=== PATIENT | female | born 1990 | race Caucasian/White ===

== ENCOUNTER → 2016-12-22 | Outpatient (CLI) | payer OTHER | END | disposition home or self-care (01) | LOC: C.PAPS 16:37 | PROVIDERS: ATTEND Obstetrics & Gynecology | DX: Z01.419 Encounter for gynecological examination (general) (routine) without abnormal findings (principal) ==

== ENCOUNTER → 2017-06-02 | Outpatient (CLI) | payer OTHER ==
[2017-06-02 17:42] LABS: BLOOD UREA NITROGEN 12 mg/dl (7-18); CREATININE 0.77 mg/dl (0.60-1.20); GLUCOSE 81 mg/dl (70-99)
[2017-06-02 17:43] LABS: ALT/SGPT 17 U/L (12-78); AST/SGOT 9 U/L (15-37); BUN/CREATININE RATIO 15.5 (10-20); CALCIUM 8.9 mg/dl (8.5-10.1); CARBON DIOXIDE 26 mmol/L (21-32); CHLORIDE 106 mmol/L (98-107); POTASSIUM 4.1 mmol/L (3.5-5.1); SODIUM 139 mmol/L (136-145)
[2017-06-02 18:04] LABS: ALB/GLOB RATIO 1.2 (0.9-2); ALKALINE PHOSPHATASE 40 U/L (45-117)
== END | disposition home or self-care (01) ==
LOC: C.LABBFT 11:39
PROVIDERS: ATTEND Physician Assistant Medical
DX: R53.83 Other fatigue (principal); Z83.2 Family history of diseases of the blood and blood-forming organs and certain disorders involving the immune mechanism

== ENCOUNTER 2023-05-22 22:14 | Inpatient (IN) ==
[2023-05-22] MEDS ORDERED: OXYTOCIN 30 UNITS/500 ML BAG IV PRN (22:48)
[2023-05-22] MEDS ORDERED: LIDOCAINE 1% LOCAL 20 ML VIAL INFIL PRN (22:48)
--- NOTE | 2023-05-22 22:54 | History & Physical Report ---
Date of Service May 22, 2023 Assessment & Plan (1) Normal labor: Plan: Jennifer is a 33-year-old G1, P0 at 39 weeks 2 days gestational age presents in labor. 1. Fetus: Category 1 2. Labor: Progressing spontaneously. We will augment as needed 3. GBS negative 4. Vitals within normal limits (2) Supervision of normal first : (3) Factor 5 Leiden mutation, heterozygous: History of Present Illness Primary Care Provider: Radha Madsen PA-C 33-year-old currently at 39+ weeks gestational age presents in labor. Denies leakage of fluid or bleeding. Good movement noted. complicated by factor V heterozygous without history of clot OB Labs: Blood Type A Positive 10/23/22 Antibody Screen NEGATIVE 10/23/22 Hemoglobin 12.1 g/dl (12.0-16.0) 03/17/23 Hematocrit 35.0 % (37.0-47.0) L 03/17/23 Mean Corpuscular Volume 90.5 fL (80.0-100.0) 10/23/22 Platelet Count 224 K/uL (130-400) 10/23/22 Rubella IgG Antibody Immune (Immune) 10/23/22 Rapid Plasma Reagin Nonreactive (Nonreactive) 10/23/22 Hepatitis B Surface Antigen. NON-REACTIVE (NON-REACTIVE) 10/23/22 Hepatitis C Antibody (EIA) NON-REACTIVE (NON-REACTIVE) 10/23/22 HIV (1&2) Ag and Ab Confirmation NON-REACTIVE (NON-REACTIVE) 10/23/22 OB Optional Labs: Chlamydia trachomatis RNA Not Detected (NotDetected) 10/23/22 Neisseria gonorrhoeae RNA Not Detected (NotDetected) 10/23/22 Thyroid Stimulating Hormone (TSH) 1.742 uIu/ml (0.300-4.500) 01/13/22 Labs Reviewed: declines cf/sma--ak low risk panorama--[facility] Allergies Allergy/AdvReac Type Severity Reaction Status Date / Time Penicillins Allergy Rash Verified 05/20/23 09:39 Home Medications Medication Instructions Recorded Confirmed Type prenat.vits,debbie,fsz-llwr-fhait 1 tab PO DAILY 04/22/22 05/20/23 History docosahexaenoic acid [ DHA] PO 10/17/22 05/20/23 History fenofibric acid (choline) PO 10/17/22 05/20/23 History calcium carbonate [Tums] PO 04/13/23 05/20/23 History valacyclovir 500 mg tablet 500 mg PO BID #60 tabs 05/05/23 05/20/23 Rx (Valtrex) Patient History Medical History (Updated 05/22/23 @ 22:52 by Dallin Thornton MD) Factor V Leiden mutation Oligomenorrhea Varicella vaccination Surgical History S/P bilateral breast reduction Family History Family/Other Breast cancer maternal relatives Father Diabetes Other Factor V deficiency Denies family history of Ovarian cancer Prostate cancer Myocardial infarction Colorectal cancer Social History (Updated 10/17/22 @ 13:16 by Lavinia Jones) Smoking Status: Never smoker Second Hand Exposure: No; Do You Dip or Chew Tobacco: No; Hx Alcohol Use: Yes Alcohol type: wine Hx Substance Use: No Preferred Language: Polish Communication Ability: Effective Visual Impairment: No Limitations Hearing Ability: Normal Band Straightener Required: No Beliefs That Will Affect Care: None marital status: marital status details: Mj Lerner(29) [phone] Current Living Situation: Spouse Current Living Situation Comment: lives with spouse, cat-spouse changing litter current occupational status: unemployed current occupation: self-employed Other Information That Helps Us Care for You: No Feels Safe at Home: Yes Safety Concerns: Feels Safe At This Time Dental Care, Regularly: Yes Physical Activity Frequency: 3-4 Times per Week Assistive Devices: None Physical Exam Genitourinary: Manual OB Exam: + cervical dilation 5 cm, + cervical effacement 90% and + station -2 OB Exam Monitor Tracing: + external FHT monitor used, + external uterine monitor used and + category I Results & Data Vital Signs (Past 12 Hours) Vital Signs Temp Pulse Resp BP 05/22/23 22:30 36.8 C 18 05/22/23 22:29 68 108/68 Coding Level of Care Code None Diagnoses Normal labor O80; Z37.9 Supervision of normal first Z34.00 Factor 5 Leiden mutation, heterozygous D68.51
[2023-05-22] MEDS: LACTATED RINGER'S 1,000 ML IV PRN (22:59)
[2023-05-22 23:17] LABS: Hematocrit (blood only) 35.8 % (37.0-47.0); Hemoglobin 12.5 g/dl (12.0-16.0); Mean Corpuscular Hemoglobin 34.2 pg (25.0-34.0); Mean Corpuscular Hgb Conc 34.9 g/dL (32.0-36.0); Mean Corpuscular Volume 98.1 fL (80.0-100.0); Mean Platelet Volume 11.3 fL (9.4-12.4); Platelet Count 152 K/uL (130-400); RDW Coefficient of Variation 13.1 % (11.5-14.5); RDW Standard Deviation 47.3 fL (36.4-46.3); Red Blood Count 3.65 M/uL (4.20-5.40); White Blood Count 9.83 K/ul (4.8-10.8)
[2023-05-22] MEDS ORDERED: BUPIVACAINE 0.25% PF 30 ML VIAL ONE (23:19)
[2023-05-22] MEDS ORDERED: ePHEDrine sulfate 50 MG/ML AMP ONE (23:19)
[2023-05-22] MEDS ORDERED: fentaNYL 2MCG/ML ROPIVACAINE 1.25MG/ML 100 ML BAG EPI ONE (23:19)
[2023-05-22] MEDS ORDERED: fentaNYL citrate PF 100 MCG/2 ML VIAL ONE (23:19)
[2023-05-22] MEDS ORDERED: LIDOCAINE 2%/EPINEPHRINE 1:200,000 20 ML PF ONE (23:19)
[2023-05-22] MEDS ORDERED: SODIUM CHLORIDE 0.9% PF INJ 10 ML VIAL ONE (23:19)
[2023-05-22] MEDS ORDERED: LIDOCAINE 2%/EPINEPHRINE 1:200,000 20 ML PF EPI STA (23:43)
[2023-05-22] MEDS ORDERED: LIDOCAINE 2% MPF LOCAL 5 ML VIAL EPI PRN (23:43)
[2023-05-22] MEDS ORDERED: fentaNYL citrate PF 100 MCG/2 ML VIAL EPI PRN (23:43)
[2023-05-22] MEDS ORDERED: NALOXONE HCL 1 MG in SODIUM CHLORIDE 0.9% 1000ML 1,000 ML IV PRN (23:43)
[2023-05-22] MEDS ORDERED: diphenhydrAMINE 50 MG/ML VIAL IV PRN (23:43)
[2023-05-22] MEDS ORDERED: SODIUM CHLORIDE 0.9% PF INJ 10 ML VIAL EPI PRN (23:43)
[2023-05-22] MEDS ORDERED: BUPIVACAINE 0.25% PF 30 ML VIAL EPI PRN (23:43)
[2023-05-22] MEDS ORDERED: NALOXONE HCL 0.4 MG/1 ML VIAL/CARP IV PRN (23:43)
[2023-05-22] MEDS ORDERED: fentaNYL 2MCG/ML ROPIVACAINE 1.25MG/ML 100 ML BAG EPI PRN (23:43)
[2023-05-22] MEDS ORDERED: BUPIVACAINE 0.25% PF 30 ML VIAL EPI STA (23:43)
[2023-05-22] MEDS ORDERED: ROPIVACAINE 0.5% PF 5 MG/ML 20 ML VIAL EPI PRN (23:43)
[2023-05-22] MEDS ORDERED: ePHEDrine sulfate 50 MG/ML AMP IV PRN (23:43)
[2023-05-22] MEDS ORDERED: NALBUPHINE HCL INJ 10 MG/ML AMP IV PRN (23:43)
[2023-05-22] MEDS ORDERED: SODIUM CHLORIDE 0.9% PF INJ 10 ML VIAL EPI STA (23:43)
[2023-05-22] MEDS ORDERED: fentaNYL citrate PF 100 MCG/2 ML VIAL EPI STA (23:43)
--- NOTE | 2023-05-22 23:43 | Anesthesiology Consultation ---
Date of Service May 22, 2023 Assessment & Plan (1) Encounter for pre-operative examination: Chart Review Chart Review: Patient NOT seen in Pre Admission Testing and Acceptable Risk for Labor Epidural Consults Requested none History Height/Weight Height: 5 ft 4 in Weight: 73.482 kg Allergies Allergy/AdvReac Type Severity Reaction Status Date / Time Penicillins Allergy Rash Verified 05/20/23 09:39 Medications Home Medications Medication Instructions Recorded Confirmed Last Taken prenat.vits,debbie,evo-myvb-ilxef 1 tab PO DAILY 04/22/22 05/20/23 04/09/23 20:00 docosahexaenoic acid [ DHA] PO 10/17/22 05/20/23 Unknown fenofibric acid (choline) PO 10/17/22 05/20/23 Unknown calcium carbonate [Tums] PO 04/13/23 05/20/23 Unknown valacyclovir 500 mg tablet 500 mg PO BID #60 tabs 05/05/23 05/20/23 Unknown (Valtrex) Active Medications Generic Name Dose Route Start Last Admin Trade Name Freq PRN Reason Stop Dose Admin Lactated Ringer's 1,000 mls @ 125 mls/hr 05/22/23 22:48 05/22/23 22:59 Lr IV 05/24/23 22:47 999 mls/hr .Q8H PRN Administration L&D Protocol Protocol Past Medical History Medical History Factor V Leiden mutation Oligomenorrhea Varicella vaccination Past Family History Family History Family/Other Breast cancer maternal relatives Father Diabetes Other Factor V deficiency Denies family history of Ovarian cancer Prostate cancer Myocardial infarction Colorectal cancer Past Surgical History Surgical History S/P bilateral breast reduction Social History Smoking Status: Never smoker Do You Dip or Chew Tobacco: No Hx Alcohol Use: Yes Alcohol type: wine Hx Substance Use: No substance use type: does not use Physical Exam Vital Signs Last Vital Signs Temp 98.2 F 05/22/23 22:30 Pulse 68 05/22/23 22:29 Resp 18 05/22/23 22:30 BP 108/68 05/22/23 22:29 Testing Laboratory Results 05/22/23 22:58
[2023-05-23] MEDS: LACTATED RINGER'S 1,000 ML IV PRN (03:34)
[2023-05-23] MEDS ORDERED: OXYTOCIN 30 UNITS/500 ML BAG IV PRN ×2 (05:37→07:55)
[2023-05-23] MEDS ORDERED: BENZOCAINE 20% SPRY 85 APPLN/85 GM CAN EXT PRN (07:55)
[2023-05-23] MEDS ORDERED: bisacodyL 10 MG SUPP PR PRN (07:55)
[2023-05-23] MEDS ORDERED: DIPHTHERIA/TETANUS/PERTUSSIS Vaccine (Tdap, Age 7+yrs) 0.5mL SYR/VL IM ONE (07:55)
[2023-05-23] MEDS ORDERED: ACETAMINOPHEN 325 MG TAB PO PRN (07:55)
[2023-05-23] MEDS ORDERED: IBUPROFEN 600 MG TAB PO PRN (07:55)
[2023-05-23] MEDS ORDERED: HYDROCORTISONE ACETATE 25 MG SUPP PR PRN (07:55)
--- NOTE | 2023-05-23 08:00 | Delivery Summary ---
Vaginal Delivery Summary Date of Service May 23, 2023 Vaginal Delivery Summary and 1st Degree LAC Patient progressed to 10 cm dilated, 100% effaced, +2-3 station and pushed over intact perineum with epidural anesthesia and delivered a viable female with weight and Apgars pending. Head of the delivered in JUAN position rest due to right transverse. A posterior compound arm was noted and was easily reduced. Body and shoulders quickly followed. was noted to be vigorous soon after delivery and a greater than 1 minute delayed cord clamping was initiated. Cord was then double clamped and cut. remained on the maternal abdomen. Cord blood was obtained. Attention was turned to delivery the placenta was delivered intact with three-vessel cord with gentle cord traction. There is noted to be a first-degree perineal laceration and left ulceration which repaired with 3-0 Vicryl continuous running stitch. Needle, sponge and instrument counts correct at the completion of the case. Both mother and stable in the immediate postdelivery. [facility] Vaginal Delivery Charge Delivery Type Details: and 1st Degree LAC
--- NOTE | 2023-05-23 09:07 | Anesthesia Procedure Note ---
Date of Service May 23, 2023 Anesthesia Post Epidural Note Vital Signs Vital Signs: Temp Pulse Resp BP Pulse Ox 36.9 C 65 18 106/60 97 05/23/23 07:03 05/23/23 08:54 05/23/23 07:03 05/23/23 08:54 05/23/23 07:51 Notes Mental Status: alert / awake / arousable Nausea / Vomiting: adequately controlled Pain: adequately controlled Airway Patency, RR, SpO2: stable & adequate BP & HR: stable & adequate Hydration State: stable & adequate Neuraxial Anesthesia: was administered and sensory block is resolving Anesthetic Complications: no major complications apparent and Pt Satisfied with anesthetic care Epidural: Removed without complications and With tip intact
[2023-05-23] MEDS: DOCUSATE SODIUM 100 MG CAP PO SCH (20:46)
[2023-05-24] MEDS: DOCUSATE SODIUM 100 MG CAP PO SCH ×3 (06:58→20:46)
[2023-05-24] MEDS: FERROUS SULFATE 325 MG TAB PO SCH ×2 (06:58→08:30)
[2023-05-24] MEDS: PRENATAL VITAMIN 1 TAB PO SCH ×2 (07:00→08:30)
--- NOTE | 2023-05-24 07:38 | Obstetrical Progress Note ---
Date of Service May 24, 2023 Assessment & Plan (1) Encounter for care and examination after delivery: 33 yo PP1 from , doing well -Meeting all pp milestones -A+/rubella immune/ -f/u 6 weeks for appt, may want to go home later today as mom is a former L&D nurse and can help, ok to do so if desires otherwise continue routine pp care Subjective Ambulation: ambulating normally Voiding: no voiding problems Passing Gas:: Yes Diet Tolerance:: regular diet Lochia:: Small Feeding Type:: breast feeding Pain well managed with medication Review of Systems Denies fevers, chills, n/v, JEREZ, CP, SOB Physical Exam Constitutional WD/WN, vitals as above no acute distress Respiratory normal respiratory effort, lungs clear to auscultation Cardiovascular RRR, no murmur, no edema Gastrointestinal (Abdomen) Percussion/Palpation: abdomen soft; abdomen nontender fundus firm at umbilicus and NT Musculoskeletal BLE symmetric, nonerythematous, nontender Results & Data Vital Signs (Past 12 Hours) Vital Signs Temp Pulse Resp BP Pulse Ox O2 Del Method 05/24/23 07:29 98.4 F 72 19 101/65 05/24/23 03:30 97.9 F 60 18 98/62 L 97 Room Air 05/23/23 23:45 97.7 F 60 18 108/66 97 Room Air 05/23/23 20:30 98.1 F 71 18 100/62 100 Room Air
--- NOTE | 2023-05-24 19:41 | Obstetrical Progress Note ---
Date of Service <Jose G Patricio MD - Last Filed: 05/25/23 06:47> May 24, 2023 Assessment & Plan <Jose G Patricio MD - Last Filed: 05/25/23 06:47> (1) Encounter for care and examination after delivery: (2) care following vaginal delivery: Plan 33 yo , status post on 05/23/23 - Pt is doing well clinically. Feels well today. Eating well, voiding well, ambulating well. Pain well controlled with PRN pain meds. - Pt's 1st degree perineal lac is feeling better. - Routine care -- OOB, ambulation, diet progression as tolerated Vital Signs reviewed and WNL. (Tmax at 37.2) BPs in normal range since ~ 11:30 on 05/23/23 Hemoglobin Reviewed. 12.5 (05/22/23) (today). Blood Type: A+, GBS-, Rubella Immune. Encourage ambulation, monitor and control pain with Motrin PRN, resume regular diet, monitor lochia. Breast feeding encouraged. After discharge will have 6 week follow-up with Dr. Thornton.. Pt counselled on discharge instructions (only if they are going home that day). <Graciela Arambula MD - Last Filed: 05/25/23 07:11> (1) Encounter for care and examination after delivery: (2) care following vaginal delivery: Subjective <Jose G Patricio MD - Last Filed: 05/25/23 06:47> Ambulation: ambulating normally Voiding: no voiding problems and no incontinence Passing Gas:: Yes Diet Tolerance:: regular diet Lochia:: Small Feeding Type:: breast feeding Current Pain Level(1-10): 2 (Both the cramping pain and the perineal pain.) 33 yo s/p day 2 feeling well, with a little residual cramping and perineal pain. Review of Systems All systems reviewed & are unremarkable except as noted in HPI & below Constitutional: no fever or no chills Eyes: no diplopia or no worsening vision Ear, Nose, Mouth, Throat: no ear pain or no sore throat Respiratory: no cough or no dyspnea Cardiovascular: no chest pain or no palpitations Breast: + breast pain (cracked nipples (using lanolin)) Gastrointestinal: no nausea, no vomiting or no diarrhea/loose stools Genitourinary (female): no dysuria or no urinary frequency Musculoskeletal: no myalgia or no body aches Integumentary: no rash Physical Exam <Jose G Patricio MD - Last Filed: 05/25/23 06:47> Constitutional WD/WN, vitals as above Respiratory normal respiratory effort, lungs clear to auscultation Cardiovascular RRR, no murmur, no edema Gastrointestinal (Abdomen) normal bowel sounds, soft, nontender, no hepatosplenomegaly Uterine fundus felt a few cm below umbilicus Musculoskeletal Extremities: extremities normal to inspection (no calf pain or tenderness felt) <Graciela Arambula MD - Last Filed: 05/25/23 07:11> Co-Signing Physician Notes Resident Physician Supervision Note: I interviewed and examined the patient. Discussed with Dr. Patricio and agree with findings and plan as documented in the note. Any exceptions or clarifications are listed here: PP2 s/p , doing well. VSS, exam benign and wnl. Stable for d/c home today Documented By: Graciela Arambula MD
[2023-05-24] MEDS ORDERED: bisacodyL 5 MG TABEC PO SCH (20:00)
[2023-05-25] MEDS: PRENATAL VITAMIN 1 TAB PO SCH (07:36)
[2023-05-25] MEDS: DOCUSATE SODIUM 100 MG CAP PO SCH (07:36)
[2023-05-25] MEDS: FERROUS SULFATE 325 MG TAB PO SCH (07:36)
== END 2023-05-25 11:00 | disposition home or self-care (01) | DRG 806 ==
LOC: OPB 22:14 → 4S1 22:15 → 4E2 05-23 11:35